=== PATIENT | male | born 1990 | race Caucasian/White ===

== ENCOUNTER 2025-05-27 07:22 | Outpatient (CLI) | payer OTHER, SELFPAY ==
--- NOTE | 2025-05-27 06:15 | DI.MRI_ITS ---
Exam(s) MR LOWER JOINT LT WO EXAM: MR LOWER JOINT LT WO CLINICAL HISTORY: L KNEE INJURY,LT ANT CRUCIATE LIGAMENT TEAR,S83.512A. TECHNIQUE: Multiplanar multisequence MRI was performed. COMPARISON: CR XR KNEE COMPLETE MIN 4V LT from 04/30/2025 FINDINGS: BONES: There there is edema in the posterior aspect of the tibia consistent with bone contusion. No discrete fracture. JOINTS: A small joint effusion is present. Articular cartilage: Patellofemoral joint: Articular cartilage is unremarkable. Medial femoral tibial joint: Articular cartilage is unremarkable. Lateral femoral tibial joint: Articular cartilage is unremarkable. LIGAMENTS/TENDONS: Anterior Cruciate: Some full-thickness tear. Posterior Cruciate: Unremarkable. Medial Collateral:Unremarkable. Lateral Collateral ligament complex: Unremarkable. Extensor mechanism: Intact. Bony density at the tibial tubercle may be related to old Tremayne-Schlatter's disease. Medial retinaculum: Unremarkable. Lateral retinaculum: Unremarkable. Popliteus: Unremarkable. MENISCI: The medial meniscus is intact. The lateral meniscus shows a bucket-handle type tear with a large portion of the posterior horn flipped anteriorly, adjacent to the anterior horn. MUSCLES: Unremarkable. SOFT TISSUES: Unremarkable mild anterior swelling. Small Llamas's cyst. IMPRESSION: Full-thickness tear of the anterior cruciate ligament. Bucket-handle type tear of the lateral meniscus with posterior horn displaced anteriorly. Bone contusion of the posterior aspect of the tibial plateau. DATA REPOSITORY:
== END 2025-05-27 07:42 ==
PROVIDERS: PCP Family Medicine; Visit Provider Student in an Organized Health Care Education/Training Program
DX: S83.512A Sprain of anterior cruciate ligament of left knee, initial encounter (principal); X58.XXXA Exposure to other specified factors, initial encounter
CPT/HCPCS: 73721

== ENCOUNTER 2025-05-30 09:40 | Day surgery (SDC) | payer OTHER, SELFPAY ==
[2025-05-30] VITALS (27 sets, daily range): BP systolic 117–169; BP diastolic 61–109; PULSE 75–96; RESP 8–27; TEMP 36.1–37.1; O2SAT 96–100; BMI 26.0
--- NOTE | 2025-05-30 07:20 | W.PM.DSUDISC ---
Date of service: 05/30/25 Discharge Plan Disposition Patient Disposition: Home Condition: Stable Discharge Details Attending Provider: Tor Crowley Primary Care Provider: Swati Tubbs Home Meds and New Rx's Prescriptions: New aspirin 81 mg tablet,delayed release (DR/EC) 81 mg PO DAILY 14 Days Qty: 14 0RF naproxen 250 mg tablet 250 - 500 mg PO BID PRN (Reason: Moderate pain) Qty: 40 0RF oxycodone 5 mg tablet 5 - 10 mg PO Q4H PRN (Reason: Moderate to severe pain) Qty: 18 0RF Discharge Instructions Additional Instructions: Surgery: Left knee arthroscopy with ACL reconstruction (quadriceps allograft), medial meniscus repair, and partial lateral meniscectomy 05/30/25; Significant preoperative stiffness from bucket-handle meniscus tear Activity: Restore full knee extension as soon as possible. Perform early quad sets/quadriceps isometrics. Recommend elevation to minimize swelling discomfort. Encourage ankle pumps and wiggle toes to improve circulation. A physical therapy prescription will be sent electronically to begin in about 3 weeks. Avoid sports activities for 9+ months. Meniscus repair protocol- Weightbearing in full extension-only for 6 weeks. Use crutches and/or brace as needed to protect and maintain knee straight. Seated/ non-weight bearing flexion 0-90 degrees maximum for 6 weeks. 120 degrees maximum flexion for 8 weeks. Spin/bike after 8 weeks. No weighted deeper flexion (squats, lunges) for 10 weeks. Prescriptions: Aspirin 81 mg take 1 daily to prevent a blood clot for 14 days, starting tomorrow morning Naproxen 250 mg take 1-2 every 12 hours with a meal as needed for moderate pain Oxycodone 5 mg take 1-2 every 4-6 hours as needed for severe pain You may use [id number] Tylenol (acetaminophen) as needed for mild pain. These pain medications may be taken all at once or in different combinations as needed. Also, recommend Colace (docusate) as a stool softener as surgery and pain medicine cause constipation. You may try zbae-[id number] diphenhydramine (Benadryl) 25-50 mg nightly as a sleep aid Dressings: Leave dressing in place for 3 days. May then remove and leave open to air or cover incisions with Band-Aids. Leave the sticky Steri-Strips in place until they fall off or remove them after you shower. May shower after 5 days. Follow-up: 10-[address] Crowley You may take off the leg compression stockings this evening at home. You may also leave them on a few days longer if you have a history of leg swelling or edema. Let us know right away if you develop any redness, drainage, fevers, chest pain, or trouble breathing. Do not drink alcohol or drive for at least 24 hours after anesthesia. Please call the office during business hours with any questions or concerns. Stand Alone Forms: Anesthesia Discharge Inst., Evaristo.Nerve Block Instructions, Samantha [place] ([facility]) Discharge Orders Discharge Orders: Discharge Order (Routine); Ordered 05/30/25 Ordered By: Marino Lyn DS: Diagnosis Discharge Diagnosis (1) Left anterior cruciate ligament tear: Status: Acute (2) Acute medial meniscus tear of left knee: Status: Acute (3) Acute lateral meniscus tear of left knee: Status: Acute
--- NOTE | 2025-05-30 07:29 | W.PM.OP ---
Operative Note Operative Note PRE-OP DIAGNOSIS: Left knee: 1. ACL rupture 2. Displaced lateral meniscus tear 3. Vertical medial meniscus tear PROCEDURE: Left knee: 1. ACL reconstruction, CPT #62968: Quadriceps allograft 2. Partial lateral meniscectomy, CPT #62366 3. Medial meniscus repair, CPT #27441 SURGEON: Tor Crowley FIELD SPECIALIST: Marino Lyn ANESTHESIA TYPE: Local By Surgeon, General LMA/ETT and Primary Nerve Block Refer to Anesthesia Record ESTIMATED BLOOD LOSS: 10 TOURNIQUET TIME: 0 COMPLICATIONS: None Patient was transported to: PACU Patient's condition: stable Implants: Arthrex ACL TightRope II RT and ABS with 8x12 mm cortical button QuadLink pre-sutured quadriceps allograft: 10 x 70 mm 2x FiberStitch medial meniscus Indications: Please see complete medical record for details. Findings: Exam under anesthesia: Stiff even under anesthesia about 5-10 degrees short of full extension with downward pressure near full extension, but spring back. Flexion to about 120 degrees. Positive Yang. Stable varus valgus. Arthroscopic findings: Moderate patellofemoral engaging synovitis. Moderately sized vertical mildly displaced posterior horn body junction medial meniscus tear. Diminutive medial compartment. Near?complete mid to proximal ACL disruption. Displaced bucket-handle lateral meniscus tear with complex radial components through the displaced portion and horizontal tearing in the posterior horn remnant. Mild medial and lateral chondromalacia. Procedure Description: In the operating room, general anesthesia was induced. The patient was positioned supine on the operating room table. All bony prominences were well-padded. Preoperative antibiotics were administered. The knee was prepped and draped in the usual sterile fashion. The correct patient, procedure, and side of the procedure were all verified prior to incision. Exam under anesthesia was performed. Local anesthetic containing epinephrine was infiltrated about the planned anteromedial, anterolateral, lateral distal femoral, and pretibial surgery sites. The standard high and tight anterolateral and anteromedial portals were established and a complete diagnostic arthroscopy was performed with relevant findings detailed above. A passport cannula was inserted in both the anteromedial and anterolateral portals. The medial meniscus tear was hard to probe and access given the diminutive and narrow medial compartment, but young age and concomitant reconstruction so best efforts were made for repair in this vertical tear good pattern in the red-white zone prepared with the meniscus rasp and then secured with 2 Arthrex fiber stitch devices in a vertical mattress configuration stable on probing throughout the tear. The displaced lateral meniscus had been reduced using the blunt obturator into the lateral compartment. It was rather beaten up and did not give the appearance of the best quality for repair. When it was displaced the posterior horn remnant had some horizontal tearing as well. Still, it was reduced and assessed for repair given the young age, and ACL reconstruction, but there were about 3 separate radial tears most significantly at the posterior horn body junction and the displaced component that nearly transected the bucket-handle torn portion into 2 separate paths. After trimming the radial tears and reassessing there was essentially 2 separate pieces parrot-beak tears, which were removed with meniscus biters and contoured into the remnant appropriately with the torpedo shaver at the anterior posterior margin and the remnant itself at the body and posterior horn trimmed of some residual tearing. There was still a modest remnant and I wonder if the displaced tear had some redundancy or discoid component.. In the intercondylar area, the ACL remnant was removed leaving enough footprint on the femur and tibia to localize anatomic socket placement. A small notchplasty was performed to allow proper visualization of the back wall. The graft was measured and prepared on the back table. The TightRope II BTB and TightRope II ABS adjustable-loop cortical suspensory fixation implants were loaded on QuadLink pre-sutured quadriceps allograft. The femoral and tibial ends measured closer to 9?9.5 mm. The graft was marked at 20 mm from each end. On the ABS side, the tensioning sutures were marked and a shuttle suture was added. The graft was manually tensioned and the construct did not demonstrate any elongation. The graft was then compressed in a graft tube and covered with vancomycin soaked sponges. The femoral guide was then placed through the anterolateral portal carefully targeting the appropriate anatomic ACL origin. The outer 9 mm diameter of the guide was positioned anatomically with appropriate space between the proximal and posterior articular margins. On the lateral thigh, drill guide position and angle adjusted to about 60 degree angle to the longitudinal axis of the femur in the coronal plane and 20 degree angle to the trans-epicondylar axis in the axial plane to create the most optimal femoral socket. Knife and snap were used to open the skin and IT band and placed the drill guide on bone while maintaining appropriate position on the lateral wall. The tunnel length was noted to be used for marking and passing the femoral button. The flip cutter was then drilled to the appropriate location. The drill guide malleted 7 mm into the cortex. The remainder of the targeting guide removed. The FlipCutter was deployed to 9.5 mm and retrograde reaming done to a depth of 25 mm. Bony debris was removed with the shaver. The flip cutter was then closed, withdrawn, and a FiberSnare used to pass a #2 FiberWire shuttle stitch, which was withdrawn out the anterolateral portal. The tibial guide was then used to target the anatomic ACL insertion through the anteromedial portal. The drill angle adjusted to 57.5 degrees and a pretibial incision made. The drill guide was placed on bone, tunnel length noted, and the flip cutter drilled to the appropriate location. The drill guide malleted 7 mm into the cortex. The remainder of the targeting guide removed. The FlipCutter was deployed to 9.5 mm and retrograde reaming done to a depth of 35 mm. Bony debris was removed with the shaver. The flip cutter was then closed, withdrawn, and a FiberSnare used to pass a #2 FiberWire shuttle stitch, which was withdrawn out the anteromedial portal. The mechanical shaver was used to remove bone debris as well as chamfer and remove soft tissue from the edges of the sockets. A femoral shuttle sutures were withdrawn out the anterior medial portal. The PassPort was removed. This portal dilated to accommodate the graft size. The graft was brought over to the knee and the femoral sutures shuttled out the lateral thigh and advanced until the button was near the far cortex. Under arthroscopic visualization with the knee slightly hyperflexed, and the button was then passed and flipped on the far cortex. Counter traction was then maintained on the tibial side of the graft while it was carefully advanced into the knee and then about 15 mm into the femoral socket. The tibial sutures were then shuttled through the tibial tunnel and passing stitch removed while carefully noting the tensioning stitches. The graft was then dunked about 15 mm into the tibial socket. 8 x 12 mm cortical ABS button was then loaded to the ABS loop and tension sutures used to bring the cortical button down to bone. The graft was advanced and then provisionally tensioned on both the femoral and tibial sides. The knee was then cycled 22 times, tensioning rechecked, and final tightening done with the knee in full extension with a moderate reverse Yang maintained. The graft position and tension were appropriate. There was no impingement in full extension although the knee still spring back to about 5 degrees flexion contracture. Downward pressure was used to stretch and achieve the passive flexion possible given the pre-existing contracture. Yang exam was stable. Femoral passing sutures were removed. Backup knots were then tied on both sides and suture tails cut. The knee and all portals were copiously irrigated and then knee drained of arthroscopic fluid. 3-0 Monocryl was used to close the portals and small incisions in a buried interrupted fashion. Mastisol, Steri-Strips, Xeroform, 4 x 4 gauze, and sterile soft roll was applied. The extremity was wrapped gently with an Dougie bandage. A soft knee immobilizer placed. The patient awoke from anesthesia without complication and was transferred to the recovery room in a stable condition. Date of Procedure: 05/30/25
[2025-05-30] MEDS: Lactated Ringers 1,000 ML 30 ML IV (10:18)
--- NOTE | 2025-05-30 10:43 | W.ANESPRE ---
General Info Date of Service Date Performed: 05/30/25 Height: 5 ft 5 in Weight: 71 kg Body Mass Index (BMI): 26.0 Surgical Procedure: Operation Date: 05/30/25 11:40 Proposed Procedure Side Surgeon p Knee ACL Reconstruction (Quadriceps Allograft) Lateral Meniscus Repair Left Tor Crowley MD Meds Allergies and Home Medications Allergies Allergy/AdvReac Type Severity Reaction Status Date / Time No Known Allergies Allergy Verified 05/30/25 09:50 Home Medication ?Medication ?Instructions ?Recorded Unknown [No Known Home Meds] 05/07/25 Current Visit Medications: Current Medications Generic Name Dose Route Start Last Admin Trade Name Freq PRN Reason Stop Dose Admin Ringer's Solution 1,000 mls @ 30 mls/hr 05/30/25 06:00 05/30/25 10:18 IV 05/30/25 23:59 30 mls/hr INFUSION BRITTANY Administration Cefazolin Sodium/Dextrose 2 gm in 50 mls @ 100 mls/hr 05/30/25 06:00 Ancef Duplex IVPB 05/30/25 23:59 PREOP BRITTANY Tranexamic Acid/Sodium Chloride 1,000 mg in 100 mls @ 600 mls/hr 05/30/25 06:00 IVPB 05/30/25 23:59 PREOP BRITTANY IV Miscellaneous Supplies 1 each 05/30/25 06:00 Iv Access IV 05/30/25 23:59 DIRECTED BRITTANY Oxycodone HCl 0 mg 05/30/25 07:20 Oxycodone 5 Mg Tab PO 06/29/25 07:19 Q3H PRN PRN Pain Sodium Chloride 0 ml 05/30/25 06:00 Normal Saline Flush 10 Ml Syr IV 05/30/25 23:59 PRN PRN Sodium Chloride 0 ml 05/30/25 06:00 Normal Saline 10 Ml Vial IJ 05/30/25 23:59 DIRECTED PRN Sterile Water 0 ml 05/30/25 06:00 Water,Injection,Sterile 10 Ml Vial IJ 05/30/25 23:59 DIRECTED PRN PFSH Active Problems Active Problems: Problem Status Onset Code Contusion of left tibia Acute S89.82XA Lateral meniscus tear Acute S83.289A Left anterior cruciate ligament tear Acute 04/30/25 S83.512A Surgical History Surgical History Hx of adenoidectomy Tobacco Smoking/Tobacco Use Status: Never Passive smoking exposure: Yes Alcohol Alcohol Intake: current Alcohol intake frequency: a few times a week Alcohol type: beer Substance Use Substance use: Daily Substance use type: marijuana Details: Last marijuana use 05/29/25. Vital Signs and Lab Results Vital Signs Most Recent Vital Signs in EMR: Most Recent Vital Signs Temp Pulse Resp BP Pulse Ox 36.1 C L 82 18 147/89 H 100 05/30/25 09:52 05/30/25 09:52 05/30/25 09:52 05/30/25 09:52 05/30/25 09:52 Anesthesia Assessment and Plan Anesthesia History Personal History: No History of Anesthesia Complications Family History: No Family History of Anesthesia Complications Exercise Tolerance Exercise Tolerance: Metabolic Equivalents>4 Cardiac & Pulmonary Exam Cardiac Exam: Normal S1/S2 Heart Sounds Pulmonary Exam: Clear Bilateral Breath Sounds Implantable Cardiac Device Does patient have a Pacemaker or an ICD?: No Airway Exam Known Difficult Airway: No Mallampati Class: 2 Mouth Opening: Normal (> 3cm) Thyromental Distance: Greater than 3 cm Neck Range of Motion: Full ROM Neck Circumference: Normal Teeth Condition: Normal Dentition ASA Classification ASA Score: ASA 2 Emergency Case?: No NPO Status NPO Status: NPO Clears >2 hours, Solids >8 hours Anesthesia Plan Resuscitation Status: Full Code Anesthesia Technique: General Anesthesia Airway Planned: Endotracheal Tube Pain Management: Surgeon and patient request nerve block Monitors Used: Standard Monitors Preoperative Comments:: 35 yo male for ACL repair. Sig PMHx: never smoker, occ EtOH. no home meds. Extremely anxious.
[2025-05-30] MEDS: ceFAZolin 2 GM/50 ML BAG IVPB (11:57)
[2025-05-30] MEDS: TRANEXAMIC ACID/SOD. CHL. 1,000 MG/100 ML BAG 600 MG IVPB (12:03)
--- NOTE | 2025-05-30 12:09 | W.ANESNERVE ---
Nerve Block Single Injection Procedure Date and Time Date Performed: 05/30/25 Procedure Start: 10:50 Location Where Procedure Performed Procedure Location: Day Surgery Unit Reason Performed: Postoperative Analgesia Requesting Provider: Tor Crowley Timeout Performed Timeout Performed: Yes Monitoring Used Blood Pressure, SpO2 and See EMR for corresponding vital signs Sterility Sterility: Hand Hygiene, Surgical Cap, Surgical Mask, Sterile Gloves, Sterile Drape/Sheet and Chlorhexidine Sedation Given During Procedure Sedation Given (Indicate Dose Given): Versed IV Dose:: 4ml and Precedex IV Dose:: 10ml Patient Mental Status Patient Mental Status: Sedate with meaningful communication Nerve Block 1st Nerve Block: Laterality: Left Block Type: Femoral Ultrasound Image Saved?: Yes Needle / Catheter Used: 80mm SonoPlex II Local Anesthetic Bolus (Indicate Dose Given): Lidocaine used for local infiltration of skin and Bupivacaine 0.5% Dose:: 15ml Additives (Indicate Dose Given): None Ultrasound: Sterile probe cover and gel used Nerve Stimulator: Supplement to Ultrasound use and No twitch or parasthesia noted < 0.5 mA (<0.8) Paresthesia: None Procedure Tolerated: No Complications and Patient tolerated well Procedure Outcome: Successful Performed By: Yuridia Trujillo Supervised By: Rhys Coelho
[2025-05-30] MEDS: Bupivacaine 0.25% Pres-Free W/EPI 30 ML VIAL (12:15)
[2025-05-30] MEDS: Vancomycin 1,000 MG VIAL 1000 MG (13:13)
[2025-05-30] MEDS: EPINEPHrine 10 MG/10 ML ML (14:53)
[2025-05-30] MEDS: HYDROmorphone 2 MG/ML SYR IVP ×3 (15:02→15:24)
--- NOTE | 2025-05-30 15:43 | W.ANESPOSTOP ---
Postoperative Evaluation Date, Time and Location Date Performed: 05/30/25 Time Performed: 15:43 Patient Location: Day Surgery Unit Vital Signs Most Recent Imported Vital Signs: Most Recent Vital Signs Temp Pulse Resp BP Pulse Ox 37.1 C 80 13 140/79 98 05/30/25 15:31 05/30/25 15:31 05/30/25 15:31 05/30/25 15:31 05/30/25 15:31 Pain Score Most Recent Pain Score: Most Recent Pain Score Pain Level 4 05/30/25 15:30 Assessment Mental Status: Awake (Alert & Oriented to Patient Baseline) Airway and Respiratory Function: Patent airway with normal (patient baseline) respiratory exam Cardiovascular Function: Hemodynamically Stable Hydration Status: Adequately Hydrated Nausea & Vomiting: No Nausea or Vomiting Pain: Pain is tolerable per patient Peripheral Nerve Block: Regional nerve block not resolved at time of post operative discharge
== END 2025-05-30 16:46 | disposition home or self-care (01) ==
PROVIDERS: PCP Family Medicine; Visit Provider Student in an Organized Health Care Education/Training Program
PROC: (CPT 29888; principal; 2025-05-30 11:30)
DX: S83.512A Sprain of anterior cruciate ligament of left knee, initial encounter (principal); S83.242A Other tear of medial meniscus, current injury, left knee, initial encounter; S83.282A Other tear of lateral meniscus, current injury, left knee, initial encounter; X58.XXXA Exposure to other specified factors, initial encounter; G89.18 Other acute postprocedural pain
CPT/HCPCS: 29888; 29881; 29882; 64447; J0131; J0665; J0690; J1100; J1171; J1885; J2250; J2405; J2704; J3373; J3475